=== PATIENT | female | born 1960 | race Caucasian/White ===

== ENCOUNTER → 2020-04-02 17:39 | Outpatient (CLI) | payer OTHER, SELFPAY ==
--- NOTE | 2020-04-02 17:43 | CT_ITS ---
STUDY: CT RIGHT LOWER EXTREMITY REASON FOR EXAM: Valgus deformity of the right knee, surgical planning. TECHNIQUE: Transaxial CT imaging of the knee was performed. Coronal and sagittal images were reformatted. Individualized dose optimization techniques were used for this CT. COMPARISON: None. FINDINGS: Knee: Normal medial femoral condyle and medial tibial plateau. There is mild to moderate joint space narrowing of the of the articular joint space of the medial knee compartment (coronal reconstruction 29). Normal lateral femoral condyle and lateral tibial plateau. There is preservation of the articular joint space of the lateral knee compartment. There is moderate joint space narrowing of the lateral aspect of the patellofemoral articulation (axial image 211). Normal proximal tibiofibular articulation. There is a small joint effusion (sagittal reconstruction 45). The quadriceps tendon is grossly normal. The patellar tendon is grossly normal. There is mild patellar enthesopathy. Normal Hoffa''s fat pad. The soft tissues are unremarkable. Hip: There is mild subchondral cystic change of the superior acetabulum (coronal reconstruction 47). There is mild joint space narrowing of the superior medial right hip (coronal reconstruction 54). Ankle: Normal tibiotalar, posterior subtalar and talonavicular articulations. CT/Extremity Lower without Contra IMPRESSION: Arthrosis of the medial femorotibial and patellofemoral compartments of the right knee. Mild right hip arthrosis. Small right knee joint effusion. Electronically Signed: Vinay Hassan MD at 13:18 EDT Tel , Service support ,
== END ==
PROVIDERS: PCP Family Medicine; Referring Provider Specialist; Visit Provider Specialist
DX: M21.061 Valgus deformity, not elsewhere classified, right knee (principal)
CPT/HCPCS: 73700

== ENCOUNTER → 2020-04-04 15:40 | Outpatient (CLI) | payer OTHER, SELFPAY ==
[2020-04-04 18:18] LABS: Albumin, Serum 4.2 g/dL (3.2-5.0)
== END ==
PROVIDERS: PCP Family Medicine; Referring Provider Specialist; Visit Provider Specialist
DX: Z01.812 Encounter for preprocedural laboratory examination (principal)
CPT/HCPCS: 36415; 82040; 83735; 84443

== ENCOUNTER 2020-04-18 05:20 | Day surgery (SDC) | payer OTHER, SELFPAY ==
[2020-03-28 15:52] LABS: Absolute Lymphocyte Count 1.25 X10^3/uL (0.83-4.51); Absolute Neutrophil Count 2.3 X10^3/uL (2.0-7.7); Basophil# 0.04 X10^3/uL; Eosinophil# 0.19 X10^3/uL; Eosinophils% 4.5 % (0-5); Hematocrit 39.2 % (37-47); Hemoglobin 12.5 g/dL (12.0-15.0); Lymphocyte # 1.25 X10^3/ul (4.0); Lymphocyte % 29.7 % (19-41); Mean Corp Hgb Conc 31.9 g/dL (32-36); Mean Corpuscular Hgb 28.9 pg (27.0-32.0); Mean Corpuscular Volume 90.7 fL (81-99); Mean Platelet Vol. 9.3 fl (6.2-12.0); Monocyte% 9.5 % (0-10); NRBC Flagged by Analyzer 0 % (0-5); Neutrophil # 2.31 X10^3/uL (2.7-7.7); Neutrophil % 54.8 % (47-70); Platelet Count 264 K/mm3 (150-450); RBC Distribution Width CV 12.5 % (11.6-14.6); RBC Distribution Width SD 41.4 fl (35.1-43.9); Red Blood Count 4.32 M/mm3 (4.2-5.4); White Blood Count 4.2 K/mm3 (4.4-11.0)
[2020-03-28 16:01] LABS: Anion Gap 4 (5-15); BUN 26 mg/dL (7-18); BUN/Creat Ratio 33.5 RATIO (10-20); Calcium,Total 9.5 mg/dL (8.5-10.1); Chloride 105 mmol/L (98-107); Creatinine, Serum 0.78 mg/dL (0.55-1.02); EST Glomerular Filtration Rate 80 mL/min (>60); Est Glom Filt Rate - Afr Amer 97 mL/min (>60); Glucose 85 mg/dL (74-106); Potassium 4.7 mmol/L (3.5-5.1); Sodium Level 140 mmol/L (136-145)
--- NOTE | 2020-03-28 23:01 | HP.PCM_ITS ---
History and Physical History and Physical [facility] Patient Name: Jaki Burr : 1960 From: JOSE ANGEL CAMARGO PA-C DATE OF SURGERY: 04/18/2020 SCHEDULED PROCEDURE: right total knee arthroplasty HISTORY OF PRESENT ILLNESS: Preoperative history and physical exam was performed on March 28, 2020. This is a 59-year-old female who has had ongoing pain for the past 5 years. Patient's initial pain began after a fall in 2014. Patient had a repeat fall in November 2019. Her pain has been intermittent, sharp, stabbing, sore. She has increased pain with going up and down stairs, sitting, and walking. She has difficult time from getting up from a seated position. She has difficult time with activities of daily living including housework, shopping, leisure activities such as biking, walking, and hiking. She has fallen secondary to her knee pain. She feels unsafe climbing a ladder. She has attempted rest, ice, elevation, corticosteroid injection with minimal relief. She has been through formal physical therapy and home exercises as well as transitional care nurse with no relief in symptoms. She has attempted meloxicam which is somewhat helpful over the past couple years. Her last injection only gave her 4 months of relief. Patient denies previous surgery on her right knee. She has been using a cane for ambulatory assistance. She has attempted bracing with no relief. After failing conservative measures and discussing treatment options with Dr. Himanshu Ricks, the patient does wish to proceed with a right total knee arthroplasty. We are obtaining surgical clearance from the primary care physician Dr. Domingo. She denies any chest pain, shortness of breath, fevers chills, recent infections. REVIEW OF SYSTEMS: ROS: Const: Reports weight change, but denies change in appetite and fever. CV: Denies chest pain, heart murmur and irregular heartbeat. Resp: Denies cough, pneumonia, shortness of breath, tuberculosis and wheezing. GI: Denies constipation, diarrhea, heartburn, nausea, rectal itching, bloody stools and vomiting. : Denies incontinence. Musculo: Reports trouble walking, but denies leg swelling, pain and weakness. Skin: Denies Raynaud's, history of shingles and tattoo. Neuro: Denies ambulatory dysfunction, dizziness, numbness/tingling and tremor. Psych: Reports anxiety, but denies insomnia and stress. Erick/Lymph: Denies anemia, bleeding/bruising tendency and past transfusion. Reviewed, no changes. PAST MEDICAL HISTORY: Advance Care Plan: Other Directive, LIVING WILL Effective Date: 03/28/2020 Other Directive, POA Effective Date: 03/28/2020 PMH: Medical Problems: Arthritis, Depression, Hypercholesterolemia, Sleep Apnea, Thyroid Disease Accidents: RT Knee - (2014) POPPED Surgical Hx: Hernia Repair - (1966) Hysterectomy - (2001) Tonsillectomy - (2007) Bunion LT - (2005) Carpal Tunnel Release LT - (1995) Tumor Removed From Center Gums - (1960) Sinus Polyps - (1983) LT NOSTRIL Breast Lump Removed - (2003) Uvuloplatopharyngoplasty - (2007) Lipoma Removal - (2019) RT ARMPIT AND BACK Anesthesia Complications: None Assistive Devices: Glasses Reviewed, no changes. SOCIAL HISTORY: SH: Marital: .Occupation: Retired.Work Status: Retired.Hand Dominance: Right- handed. Personal Habits: Cigarette Use: Never Smoked Cigarettes.Smokeless Tobacco: Never Used Smokeless Tobacco.E-Cigarette Use: Never used.Alcohol: Occasionally.Drug Use: Denies Use.Enjoy Exercising: Daily. Reviewed, no changes. VITALS: Ht: 67.5 Wt: 172lb Wt k.019 BMI: 26.5 BP: 110/64 Pulse: 71 Resp: 14 T: 97.2 T: 36.2C ALLERGIES: Sulfa Azithromycin Penicillin Ultram Amoxicillin MEDICATIONS: Oxycodone HCL 5 mg 1-2 tab by mouth every 4 hours, Promethazine HCL 12.5 mg 1-2 tablets by mouth every 6 hours, Famotidine 20 mg 1 by mouth every day, Scopolamine 1 MG/3Days 1 patch behind ear every 3 days; to begin the night before surgery, Synthroid 100 mcg 1 by mouth every day, Meloxicam 15 mg 1 by mouth every day, Sertraline HCL 100 mg 1 by mouth every day, Ipratropium Alta 0.06 % 2 puff inhale orally four times a day, Multivitamin 1po qday, Vitamin E 100 Unit, Replens once q 3days PRE-OP EXAM: General appearance:NORMAL Other: Eyes: Conjunctivae and lids: NORMAL Pupils: ERR Ears, Nose, Mouth, and Throat: NORMAL Other: Inspection of lips, teeth and gums: NORMAL Other: Neck: Examination of neck: no masses noted. Respiratory: Assessment of respiratory effort: NORMAL Other: Auscultation of lungs: clear to auscultation no wheezes, rhonchi or rales. Cardiovascular: Auscultation of heart: regular rate and rhythm, no murmurs, gallops or rubs. Exam of carotid arteries: NORMAL Other: Gastrointestinal: Exam of abdomen: soft, nontender, nondistended bowel sounds present. PHYSICAL EXAMINATION: Patient does walk with a limping gait. Right knee is cool to touch without erythema or signs of infection. She has tenderness to palpation along the medial joint line. Range of motion: 0 extension to 120 flexion. She has crepitus with range of motion. has pain and click with Kimmie's examination. IMAGING STUDIES: X-ray of the right knee reveals valgus alignment and lateral joint space narrowing with subchondral sclerosis and osteophyte formation consistent with severe lateral compartmental osteoarthritis. Stress radiograph was also taken which corrected her valgus alignment. MRI of the right knee does reveal lateral meniscus tearing with grade 4 lateral compartment chondromalacia and appreciable patellofemoral and medial compartment chondromalacia. IMPRESSION: 1. Severe right knee osteoarthritis 2. Depression 3. Hypercholesterolemia 4. Sleep apnea 5. Thyroid disease PLAN: Dr. Himanshu Ricks did discuss and review with the patient all treatment options including surgical versus nonsurgical options. Patient does wish to proceed with the above-stated procedure. Potential risks, benefits, and complications of the procedure were discussed in detail including but not limited to , infection, nerve and blood vessel damage, persistent pain, numbness, tingling, paresthesias, blood clot, pulmonary embolism, and requirement for possible further surgery. The patient expressed full understanding and has no further questions for the doctor. Patient does agree to proceed with the above-stated procedure and has signed the surgery consent form. We discussed the current risks associated with COVID 19. This does include the risk of exposure while in the hospital. Patient was reassured local hospitals have low infection rates and are taking all necessary precautions to avoid exposure to patients. In addition, we discussed strategies that can be used to help limit exposure including those that limit the patient's time in the hospital. Also using strategies to limit the patient's need for continued inpatient services after being discharged from the hospital. Patient was notified that we will need to comply with any screening or testing the hospital wishes to perform or that surgery may be delayed for any positive results. This dictation was created using voice recognition software. Phonetic and/or grammatical errors may exist. ___ I have re-examined the patient. There are no clinical changes since date of exam. ___ See progress notes for changes. ___ Dictated on admission Date: Time: Signature:
[2020-04-04 18:15] LABS: Magnesium 2.2 mg/dL (1.6-2.6); Thyroid Stim Hormone (TSH) 5.36 uIU/mL (0.358-3.74)
[2020-04-18] VITALS (13 sets, daily range): BP systolic 94–122; BP diastolic 52–69; PULSE 58–76; RESP 13–16; TEMP 36.3–36.9; O2SAT 97–100; BMI 26.5
[2020-04-18] MEDS: Lactated Ringers 1,000 ML 999 ML IV ×2 (06:03→09:49)
[2020-04-18] MEDS: Acetaminophen 500 MG Tablet 1000 MG PO ×2 (06:04→14:12)
[2020-04-18] MEDS: Gabapentin 600 MG Tablet PO (06:04)
--- NOTE | 2020-04-18 07:05 | RAD_ITS ---
STUDY: X-RAY - RIGHT KNEE REASON FOR EXAM: Female, 59 years old. POST OP TOTAL KNEE REPLACEMENT TECHNIQUE: 2 view(s) of the knee. COMPARISON: None. FINDINGS: Normal visualized distal femur. Normal visualized proximal tibia and fibula. Normal proximal tibiofibular articulation. The patient is status post total knee replacement. There is good alignment. Postoperative soft tissue changes. RAD/Knee 1 or 2 Views IMPRESSION: Status post total knee replacement. There is good alignment. Postoperative soft tissue changes. Electronically Signed: Dallin Ball, at 11:07 EDT , Service support ,
[2020-04-18] MEDS: Cefazolin 2 GM in 0.9% Normal Saline 100 ML IV (07:22)
[2020-04-18] MEDS: dexAMETHasone 10 MG/ML Vial IV (07:45)
[2020-04-18 08:15] LABS: Bedside Glucose 65 mg/dL (70-110)
--- NOTE | 2020-04-18 08:46 | OP.PCM_ITS ---
Report of Operation Date of Procedure: 04/18/20 Pre-Operative Diagnosis: Right knee primary osteoarthritis Post-Operative Diagnosis: Right knee primary osteoarthritis Surgery/Procedure Performed:: Right knee minimally invasive direct anterior hip replacement Description of Surgical Findings:: Stable knee with good patella tracking fixer boarding room: Andres Rosales Type of Anesthesia:: Spinal Anesthesiologist: Rudy Zamora Special Medications: 2 g Ancef, 1 g TXA at incision, 1 g TXA closure, 10 mg Decadron, joint cocktail (5 mg Duramorph, 30 mL of 0.5% Ropivicaine, 1000 units of epinephrine, 30 mg of Toradol) Specimen's removed: Bony cuts Estimated Blood Loss (mL): 30 Fluids Replaced: Crystalloid Description of Procedure: Implants used: 1. Harshal size 4 triathlon cruciate retaining distal femoral press-fit component 2. [place] size 4 press-fit tritanium tibial baseplate 3. Harshal X3 9 mm CS polyethylene 4. Harshal X3 32 mm asymmetric patella Brief history operative indications: 59-year-old f with history of right knee osteoarthritis with radiographic findings with loss of joint space, osteophyte formation and subchondral sclerosis. Failed conservative measures as mentioned in the H&P. Discussion of total knee arthroplasty as well as risk and benefits were discussed the patient including but not limited to blood loss, DVTs, PEs, neurovascular damage, general risk of anesthesia including loss of life, and stiffness or instability were discussed with patient. Patient demonstrated understanding and was able to sign informed consent. Procedure: On the date of procedure patient's right lower extremity was marked in the preoperative area. The patient was then taken back to the operating room where the patient was placed on the table in the supine position. All bony prominences were identified a well-padded. Anesthesia assumed control of the C-spine and airway and remained controlled throughout the remainder of the procedure. A tourniquet was placed on the right upper thigh and the leg was prepped in a sterile fashion. The surgeon then scrubbed at this time .Upon reentering the room right lower extremity was draped in a standard orthopedic fashion. A timeout was then called and everyone agreed upon the side, the site, the procedure to be performed, patient's identity and antibiotics given. Esmarch bandage was used to exsanguinate the extremity and the tourniquet was placed up to 250 mmHg with the knee in flexion. A midline skin incision was made and sharp dissection was taken down through skin subcutaneous tissue and fat. The standard medial parapatellar incision was made and the patella was subluxed laterally. An Appropriate deep MCL release was done and the fat pad was resected. Our attention was then directed to the patella. The patella was everted and a flat resection was made. The knee was then flexed up in 2 femoral pins were placed inside the incision and 2 tibial pins were placed outside the incision in the medial tibia bicortically. Once this was completed the 2 checkpoints in the femur and tibia were placed. Knee was then flexed up and the bony landmarks were registered. Once this was completed knee was taken through range of motion and manually stressed allowing us to a plan for an appropriate tibial cut. The robotic arm was brought into the field sterilely and checkpoint and saw were registered. Based on the patient's deformity the tibial cut was made 1 degree of varus. At this time the tensioner was then placed in the joint and ligament tension was checked at 90 degrees and full extension. Based on the patient's ligamentous tension appropriate adjustments were made to the operative plan and ligament releases were done. Once we were happy with our operative plan with balanced flexion and extension gaps our attention was directed to the femur. The robot was brought into the field sterilely and registered. Posterior condylar cuts, anterior chamfer cuts and anterior cuts were appropriately made for a size 4 femur. When these were completed the saws were switched out in the distal femoral and posterior chamfer cuts were made. Protecting the soft tissue throughout this time. A size 4 tibial base plate was selected. the knee was flexed to 90 degrees and the soft tissues and posterior osteophytes were removed from the joint. 40 cc of the periarticular injection was injected into the posterior medial corner of the joint. The appropriate trials were then placed on the femur and tibia. A trial polyethylene was trialed to ensure proper balancing and stability of the knee. The appropriate tibial internal rotation was then marked with a bovie. Our attention was then directed to the patella. The lug holes were drilled and the patella trial was placed. Patellar tracking was checked and deemed appropriate. Once we were happy lug holes were drilled for the femur and trial components were removed. the tibia was subluxed and pinned into place and the keel was punched and drilled appropriately. Final components were verified and opened, and cement was mixed in a vacuum. WearYouWant Simplex cement was used. The wound was copiously irrigated with normal saline. When the cement was ready the components were impacted into place starting with the tibia, femur and finally cementing the patella. The trial poly component was placed and the knee was placed in full extension. All excess cement was removed in the process. Once the cement had cured the tracking, alignment and balance were verified and a size 9 mm CS polyethylene component was placed. Once the final components were placed an Irrisept lavage was performed and the wound was copiously irrigated with normal saline solution and the periarticular injection was given. The wound was closed in a layer chapman fashion using #1 vicryl interrupted sutures for the arthrotomy, 2-0 interrupted Vicryl suture for the subcuticular layer and mukul for final skin closure. A sterile compressive dressing was then placed. The patient was then awakened from anesthesia, transferred to the rcanjilon and transferred to the PACU for recovery. Post op plan DVT ppx: ASA 81mg BID, thigh high compression stockings Follow up: in office in 2 weeks for wound check PT: to start POD #0 at hospital, outpatient PT should be arranged. Due to the complexity of this case robotic arm was used to assist in the surgery to improve accuracy and clinical outcomes. - Complications No intraoperative complications - Admit VTE Documentation VTE Present on Admission: No VTE Mechan Device Prophylaxis: SCD's, Thigh High EDUARDO Hose VTE Pharm Prophylaxis ordered?: Yes
[2020-04-18] MEDS: Lactated Ringers 1,000 ML 125 ML IV (10:11)
--- NOTE | 2020-04-18 10:35 | SUR.PHASEI ---
dressing dry and intact. ppp
[2020-04-18] MEDS: oxyCODONE 5 MG Tablet PO (12:40)
[2020-04-18] MEDS: Cefazolin 1 GM/50 ML BAG IV (12:41)
== END 2020-04-18 15:03 | disposition home or self-care (01) ==
LOC: SDC 05:25 → AC 05:25
PROVIDERS: Anesthesiology; PCP Family Medicine; Referring Provider Specialist; Visit Provider Specialist
PROC: 0SRC0JZ Replacement of Right Knee Joint with Synthetic Substitute, Open Approach (ICD-10-PCS; CPT 27447; principal; 2020-04-18 07:00)
DX: M17.11 Unilateral primary osteoarthritis, right knee (principal); Z11.59 Encounter for screening for other viral diseases; E07.9 Disorder of thyroid, unspecified; G47.30 Sleep apnea, unspecified; E78.00 Pure hypercholesterolemia, unspecified; F32.9 Major depressive disorder, single episode, unspecified; Z79.899 Other long term (current) drug therapy; F41.9 Anxiety disorder, unspecified
CPT/HCPCS: 01402; 27447; 64447; S2900; 36415; 73560; 80048; 82962; 83735; 84443; 85025; 87081; 87635; 97162; 97166; C1776; C9803; J7120; J2405; U0003

== ENCOUNTER → 2021-03-11 14:30 | Outpatient (CLI) | payer OTHER, SELFPAY ==
[2020-04-18 05:58] VITALS: BMI 26.5
[2021-03-11 19:45] LABS: Absolute Lymphocyte Count 1.91 X10^3/uL (0.83-4.51); Absolute Neutrophil Count 3.7 X10^3/uL (2.0-7.7); Basophil# 0.06 X10^3/uL; Eosinophil# 0.14 X10^3/uL; Eosinophils% 2.3 % (0-5); Hematocrit 41.5 % (37-47); Hemoglobin 13.1 g/dL (12.0-15.0); Lymphocyte # 1.91 X10^3/ul (0.83-4.51); Lymphocyte % 30.8 % (19-41); Mean Corp Hgb Conc 31.6 g/dL (32-36); Mean Corpuscular Volume 91.8 fL (81-99); Mean Platelet Vol. 9.2 fl (6.2-12.0); Monocyte% 6.5 % (0-10); NRBC Flagged by Analyzer 0 % (0-5); Neutrophil # 3.66 X10^3/uL (2.7-7.7); Neutrophil % 58.9 % (47-70); Platelet Count 338 K/mm3 (150-450); RBC Distribution Width CV 13.5 % (11.6-14.6); RBC Distribution Width SD 46.5 fl (35.1-43.9); Red Blood Count 4.52 M/mm3 (4.2-5.4); White Blood Count 6.2 K/mm3 (4.4-11.0)
[2021-03-11 19:58] LABS: Erythrocyte Sedimentation Rate 6 mm/hr (0-30)
[2021-03-11 20:01] LABS: CRP < 2.90 mg/L (0.0-3.0)
== END ==
PROVIDERS: PCP Family Medicine; Referring Provider Physician Assistant Surgical; Visit Provider Physician Assistant Surgical
DX: Z96.651 Presence of right artificial knee joint (principal)
CPT/HCPCS: 36415; 85025; 85652; 86140

== ENCOUNTER → 2021-06-25 16:09 | Outpatient (CLI) | payer OTHER, SELFPAY ==
[2021-06-25 17:43] LABS: Absolute Lymphocyte Count 0.93 X10^3/uL (0.83-4.51); Absolute Neutrophil Count 7.5 X10^3/uL (2.0-7.7); Basophil# 0.02 X10^3/uL; Basophil% 0.2 % (0-1); Eosinophil# 0.01 X10^3/uL; Eosinophils% 0.1 % (0-5); Hematocrit 40.3 % (37-47); Hemoglobin 13.1 g/dL (12.0-15.0); Lymphocyte # 0.93 X10^3/ul (0.83-4.51); Lymphocyte % 10.5 % (19-41); Mean Corp Hgb Conc 32.5 g/dL (32-36); Mean Corpuscular Hgb 28.5 pg (27.0-32.0); Mean Corpuscular Volume 87.6 fL (81-99); Mean Platelet Vol. 8.7 fl (6.2-12.0); Monocyte# 0.41 X10^3/uL; Monocyte% 4.6 % (0-10); NRBC Flagged by Analyzer 0 % (0-5); Neutrophil # 7.47 X10^3/uL (2.7-7.7); Neutrophil % 84.1 % (47-70); Platelet Count 357 K/mm3 (150-450); RBC Distribution Width CV 12.7 % (11.6-14.6); RBC Distribution Width SD 40.3 fl (35.1-43.9); White Blood Count 8.9 K/mm3 (4.4-11.0)
[2021-06-25 17:58] LABS: Albumin, Serum 4.3 g/dL (3.2-5.0); Anion Gap 6 (5-15); BUN 20 mg/dL (7-18); BUN/Creat Ratio 25.9 RATIO (10-20); Calcium,Total 9.6 mg/dL (8.5-10.1); Chloride 105 mmol/L (98-107); Creatinine, Serum 0.77 mg/dL (0.55-1.02); EST Glomerular Filtration Rate 80 mL/min (>60); Est Glom Filt Rate - Afr Amer 97 mL/min (>60); Glucose 115 mg/dL (74-106); Sodium Level 139 mmol/L (136-145)
== END ==
LOC: LAB.FUTURE 16:09 → MTLAB 16:10
PROVIDERS: Specialist; PCP Family Medicine; Referring Provider Physician Assistant Surgical; Visit Provider Physician Assistant Surgical
DX: Z01.818 Encounter for other preprocedural examination (principal)
CPT/HCPCS: 36415; 80048; 82040; 85025

== ENCOUNTER 2021-10-15 10:55 | Outpatient (CLI) | payer OTHER, SELFPAY ==
[2021-10-15 12:18] LABS: Erythrocyte Sedimentation Rate 11 mm/hr (0-30)
[2021-10-15 12:20] LABS: Absolute Lymphocyte Count 1.45 X10^3/uL (0.83-4.51); Absolute Neutrophil Count 3.2 X10^3/uL (2.0-7.7); Basophil# 0.05 X10^3/uL; Basophil% 0.9 % (0-1); Eosinophil# 0.22 X10^3/uL; Eosinophils% 4.2 % (0-5); Hematocrit 36.9 % (37-47); Lymphocyte # 1.45 X10^3/ul (0.83-4.51); Lymphocyte % 27.5 % (19-41); Mean Corp Hgb Conc 32.5 g/dL (32-36); Mean Corpuscular Hgb 29.3 pg (27.0-32.0); Monocyte# 0.38 X10^3/uL; Monocyte% 7.2 % (0-10); NRBC Flagged by Analyzer 0 % (0-5); Neutrophil # 3.15 X10^3/uL (2.7-7.7); Neutrophil % 59.8 % (47-70); Platelet Count 276 K/mm3 (150-450); RBC Distribution Width CV 13.2 % (11.6-14.6); RBC Distribution Width SD 43.3 fl (35.1-43.9); White Blood Count 5.3 K/mm3 (4.4-11.0)
[2021-10-15 13:03] LABS: CRP < 2.90 mg/L (0.0-3.0)
== END 2021-10-15 23:59 | disposition home or self-care (01) ==
LOC: MTLAB 10:57
PROVIDERS: PCP Family Medicine; Referring Provider Specialist; Visit Provider Specialist
DX: Z96.651 Presence of right artificial knee joint (principal)
CPT/HCPCS: 36415; 85025; 85652; 86140

== ENCOUNTER → 2021-12-12 | Outpatient (CLI) | payer OTHER, SELFPAY ==
[2021-12-12 17:45] LABS: Absolute Lymphocyte Count 1.74 X10^3/uL (0.83-4.51); Absolute Neutrophil Count 3.9 X10^3/uL (2.0-7.7); Basophil# 0.06 X10^3/uL; Basophil% 0.9 % (0-1); Eosinophil# 0.22 X10^3/uL; Eosinophils% 3.5 % (0-5); Hematocrit 39.9 % (37-47); Hemoglobin 12.8 g/dL (12.0-15.0); Lymphocyte # 1.74 X10^3/ul (0.83-4.51); Lymphocyte % 27.5 % (19-41); Mean Corp Hgb Conc 32.1 g/dL (32-36); Mean Corpuscular Hgb 28.6 pg (27.0-32.0); Mean Corpuscular Volume 89.1 fL (81-99); Mean Platelet Vol. 8.9 fl (6.2-12.0); Monocyte% 6.3 % (0-10); NRBC Flagged by Analyzer 0 % (0-5); Neutrophil # 3.87 X10^3/uL (2.7-7.7); Neutrophil % 61.3 % (47-70); Platelet Count 318 K/mm3 (150-450); RBC Distribution Width CV 13.2 % (11.6-14.6); RBC Distribution Width SD 42.9 fl (35.1-43.9); Red Blood Count 4.48 M/mm3 (4.2-5.4); White Blood Count 6.3 K/mm3 (4.4-11.0)
[2021-12-12 18:09] LABS: Anion Gap 6 (5-15); BUN 22 mg/dL (7-18); BUN/Creat Ratio 24.3 RATIO (10-20); Calcium,Total 9.3 mg/dL (8.5-10.1); Chloride 104 mmol/L (98-107); EST Glomerular Filtration Rate 67 mL/min (>60); Est Glom Filt Rate - Afr Amer 81 mL/min (>60); Glucose 89 mg/dL (74-106); Potassium 4.4 mmol/L (3.5-5.1); Sodium Level 138 mmol/L (136-145)
== END | disposition home or self-care (01) ==
PROVIDERS: PCP Family Medicine; Referring Provider Physician Assistant Surgical; Visit Provider Physician Assistant Surgical
DX: Z01.818 Encounter for other preprocedural examination (principal)
CPT/HCPCS: 36415; 80048; 82040; 85025

== ENCOUNTER → 2022-01-31 | Outpatient (CLI) | payer OTHER, SELFPAY ==
[2022-01-31 12:35] LABS: Hematocrit 35.1 % (37-47); Hemoglobin 11.5 g/dL (12.0-15.0); Mean Corp Hgb Conc 32.8 g/dL (32-36); Mean Corpuscular Hgb 29.3 pg (27.0-32.0); Mean Corpuscular Volume 89.3 fL (81-99); Mean Platelet Vol. 8.7 fl (6.2-12.0); Platelet Count 329 K/mm3 (150-450); RBC Distribution Width CV 13.4 % (11.6-14.6); RBC Distribution Width SD 43.9 fl (35.1-43.9); Red Blood Count 3.93 M/mm3 (4.2-5.4); White Blood Count 5.1 K/mm3 (4.4-11.0)
== END | disposition home or self-care (01) ==
LOC: MTLAB 10:56
PROVIDERS: PCP Family Medicine; Referring Provider Family Medicine; Visit Provider Family Medicine
DX: D50.0 Iron deficiency anemia secondary to blood loss (chronic) (principal)
CPT/HCPCS: 36415; 85027

== ENCOUNTER → 2023-02-18 | Outpatient (CLI) | payer OTHER, SELFPAY ==
[2023-02-18 10:52] LABS: Bacteria 0 SEEN /hpf (None Seen); Mucous, Urine 0 SEEN /hpf (<or=2+); Red Blood Cells-Urine 0 SEEN /hpf (0-5); White Blood Cells 0 SEEN /hpf (0-5)
[2023-02-18 12:40] LABS: Absolute Lymphocyte Count 1.18 X10^3/uL (0.83-4.51); Absolute Neutrophil Count 2.9 X10^3/uL (2.0-7.7); Basophil# 0.04 X10^3/uL; Basophil% 0.9 % (0-1); Eosinophil# 0.15 X10^3/uL; Eosinophils% 3.2 % (0-5); Hematocrit 40.3 % (37-47); Hemoglobin 12.6 g/dL (12.0-15.0); Lymphocyte # 1.18 X10^3/ul (0.83-4.51); Lymphocyte % 25.3 % (19-41); Mean Corp Hgb Conc 31.3 g/dL (32-36); Mean Corpuscular Hgb 29.2 pg (27.0-32.0); Mean Corpuscular Volume 93.3 fL (81-99); Mean Platelet Vol. 8.7 fl (6.2-12.0); Monocyte# 0.32 X10^3/uL; Monocyte% 6.9 % (0-10); NRBC Flagged by Analyzer 0 % (0-5); Neutrophil # 2.94 X10^3/uL (2.7-7.7); Neutrophil % 63.1 % (47-70); Platelet Count 320 K/mm3 (150-450); RBC Distribution Width CV 13.9 % (11.6-14.6); RBC Distribution Width SD 47.6 fl (35.1-43.9); Red Blood Count 4.32 M/mm3 (4.2-5.4); White Blood Count 4.7 K/mm3 (4.4-11.0)
[2023-02-18 12:41] LABS: Color, Urine Yellow (Yellow); Erythrocyte Sedimentation Rate 6 mm/hr (0-30); Glucose, Dipstick Normal (Normal); Ketone-Dipstick Negative (Negative); Leukocyte Esterase-Dipstick Negative /ul (Negative); Nitrite-Dipstick Negative (Negative); Occult Blood-Urine Negative /ul (Negative); Protein-Dipstick Negative (Negative); Urine Bilirubin Dipstick Negative (Negative); Urine Clarity Clear (Clear); Urine Urobilinogen Normal (Normal)
[2023-02-18 12:48] LABS: Squamous Epithelial Cells - UA 0-5 SEEN /hpf (5-10)
[2023-02-18 13:12] LABS: ALB/GLOB Ratio 1.2 RATIO (0.9-2.4); AST(SGOT) 22 U/L (15-37); Alanine Aminotransfer ALT/SGPT 38 U/L (13-56); Albumin, Serum 4.1 g/dL (3.2-5.0); Alkaline Phosphatase 53 U/L (45-117); Anion Gap 4 (5-15); BUN 15 mg/dL (7-18); CPK Total, Creatine Kinase 106 U/L (26-192); CRP < 2.90 mg/L (0.0-3.0); Calcium,Total 9.6 mg/dL (8.5-10.1); Chloride 103 mmol/L (98-107); Creatinine, Serum 0.83 mg/dL (0.55-1.02); EST Glomerular Filtration Rate 73 mL/min (>60); Est Glom Filt Rate - Afr Amer 89 mL/min (>60); Globulin 3.5 g/dL (2.2-4.2); Glucose 98 mg/dL (74-106); Potassium 4.8 mmol/L (3.5-5.1); Protein, Total 7.6 g/dL (6.4-8.2); Sodium Level 138 mmol/L (136-145)
[2023-02-19 05:07] LABS: Complement C3 126 mg/dL (82-167)
== END | disposition home or self-care (01) ==
LOC: MTLAB 10:21
PROVIDERS: PCP Family Medicine; Referring Provider Internal Medicine Rheumatology; Visit Provider Internal Medicine Rheumatology
DX: M05.79 Rheumatoid arthritis with rheumatoid factor of multiple sites without organ or systems involvement (principal); M32.9 Systemic lupus erythematosus, unspecified; D17.1 Benign lipomatous neoplasm of skin and subcutaneous tissue of trunk; R76.8 Other specified abnormal immunological findings in serum; E55.9 Vitamin D deficiency, unspecified; E05.80 Other thyrotoxicosis without thyrotoxic crisis or storm; E03.8 Other specified hypothyroidism; G56.03 Carpal tunnel syndrome, bilateral upper limbs; H93.13 Tinnitus, bilateral; Z87.39 Personal history of other diseases of the musculoskeletal system and connective tissue; Z92.89 Personal history of other medical treatment; Z96.651 Presence of right artificial knee joint
CPT/HCPCS: 36415; 80053; 81001; 82550; 85025; 85652; 86140; 86160; 86431

== ENCOUNTER 2023-03-13 05:52 | Day surgery (SDC) | payer OTHER, SELFPAY ==
[2023-03-13] MEDS: Lactated Ringers 1,000 ML 15 ML IV (06:25)
[2023-03-13 06:26] VITALS: BP 113/70; PULSE 70; RESP 17; TEMP 36.7; O2SAT 97; BMI 27.9
--- NOTE | 2023-03-13 07:14 | PCM.HP.BLA ---
History and Physical Date of Admission: 03/13/23 Pt examined and there is no interval change from H&P of 02/20/23. Pt with sq mass mid back--for exicision. Assessment & Plan Assessment/Plan (1) Neoplasm of uncertain behavior of connective and other soft tissue: PLAN: Plan Pt for excision mass back
[2023-03-13] MEDS: Cefazolin 2 GM in 0.9% Normal Saline 100 ML IV (07:29)
--- NOTE | 2023-03-13 07:30 | SOF_PTH ---
PATIENT: VARINDER ALFARO [place]: [facility] [place] U[place][id number] AGE/SX: 62/F ROOM: RE03/13/[address]: Dr. Kitty Burnham MD : 1960 BED: DIS: 03/13/2023 SPEC #: [id number] RECD: 03/13/23 09:24 STATUS: ELOINA PATHAK #: [id number] KARSTEN: 03/13/23 07:[address]: Kitty Burnham DEPT: SURGICAL PATHOLOGY RECD BY: Sigrid Friedman ENTERED: 03/13/23 10:18 SP TYPE: SOFT TISS OTHR DR: Dr. Simeon Esparza MD Tissues: Soft tissues, NOS Procedures: Surgery Specimen Level III HEADER OPERATION: Excision SQ mass back PRE-OP DIAGNOSIS: Neoplasm of soft tissue on back TISSUE SUBMITTED: Back mass MICROSCOPIC DIAGNOSIS Soft tissue mass of back, excision: Mature adipose tissue consistent with lipoma. AM:pancho 03/16/2023 MICROSCOPIC DESCRIPTION Slides are reviewed. GROSS DESCRIPTION Received in fixative is one container labeled with the patient's name and designated back mass. The specimen consists of multiple irregular fragments of hinson-yellow fibrofatty tissue that in aggregate measure 4.0 x 3.5 x 0.6 cm. The specimen is totally submitted in two cassettes. / AM:pancho 03/13/2023 TC:1 CPT: 41840
[2023-03-13] MEDS: Lidocaine 1% /Epi 1:100 (20ml) 20 ML Vial (08:05)
--- NOTE | 2023-03-13 08:54 | DCINST_ITS ---
Discharge Instructions Diet Discharge Diet: No restrictions Dressing / Incision Remove Dressing in: leave in place till F/U Additional Dressing/Incision Instructions:: Keep your back elevated (recliner position) for the next 4-5 nights to decrease pressure on the area and to reduce bruising/swelling. Take the oral antibiotic (Keflex) 2 x a day until finished. May shower over the area, but do not scrub. F/U in 1-2 weeks for recheck. Follow Up Care Please Follow Up With: Kitty Burnham MD When: 1-2 weeks Test Results: Test results from this visit will be discussed in further detail at your follow- up appointment, if applicable. Discharge Plan Admission Attending Provider: Kitty Burnham Primary Care Provider: Simeon Esparza Discharge Orders/Prescriptions Prescriptions: New cephalexin 500 mg capsule 500 mg PO BID Qty: 10 0RF No Action hydroxychloroquine [Plaquenil] 200 mg tablet 100 mg PO DAILY duloxetine [Cymbalta] 20 mg capsule,delayed release(DR/EC) 120 mg PO DAILY cholecalciferol (vitamin D3) 25 mcg (1,000 unit) capsule 25 mcg PO DAILY trazodone 50 mg tablet 50 mg PO QHS PRN (Reason: insomnia) acetaminophen [Tylenol Extra Strength] 500 mg tablet 500 mg PO Q6H PRN (Reason: pain) levothyroxine 100 MCG tablet 112 mcg PO DAILY estradiol 0.01 % (0.1 mg/gram) cream 1 g VAGINAL .QOD Patient Comments: INSERT 1/4 APPLICATOR Every other day fluticasone propionate [Flonase Allergy Relief] 50 mcg/actuation spray,suspen elizabet 2 spray intranasal DAILY Rx Instructions: administer into each nostril Referrals / Follow Up: Simeon Esparza MD [Primary Care Provider] - Disposition Disposition (needs filled in before D/C Order can be placed): Home, Self Care
[2023-03-13 09:00] VITALS: BP 113/70; BP 137/68; PULSE 83; RESP 16; TEMP 36.9; O2SAT 95
--- NOTE | 2023-03-13 09:02 | PCM.OPRPT ---
Report of Operation Date of Procedure: 03/13/23 Pre-Operative Diagnosis: Subcutaneous mass mid back Post-Operative Diagnosis: Same Surgery/Procedure Performed:: Excision subcutaneous mass mid back (4.5 cm) Surgeon: Kitty Burnham Type of Anesthesia: General Specimen's removed: Subcutaneous mass Drains: None Estimated Blood Loss (mL): Minimal Description of Procedure: The patient was brought to the operating room and placed under general anesthesia in the supine position. The patient is then repositioned to a right lateral decubitus position using beanbags and padding. Additionally her arm is supported and suspended to maintain anatomic position. The back is prepped and draped in the usual sterile fashion. I initially began with injecting 1% Xylocaine with epinephrine to facilitate hemostasis. Following this, an incision is made over top of the mass and carried down through the subcutaneous tissue. The subcutaneous mass is noted to be a multilobulated fatty tissue. As much of the lobulations as possible are removed. The wound is irrigated with saline and checked for hemostasis which is controlled with cautery. The specimen is passed off the operative field to be sent to pathology. The wound is closed in layers by initially approximating subcutaneous fat with Vicryl suture. Following this, a V-Loc suture was used to approximate the subcutaneous tissue and dermis and skin in multiple layers. Quarter percent plain Marcaine is injected along the incision line at the conclusion. Dermabond was placed on the incision along with Steri-Strips and a Tegaderm. She tolerated the procedure well and was taken to the recovery area in an awake and stable condition. Needle and sponge counts are correct. Complications None Admit VTE Documentation VTE Mechan Device Prophylaxis: SCD's
[2023-03-13] MEDS: Acetaminophen 500 MG Tablet 1000 MG PO (09:10)
[2023-03-13 09:15] VITALS: BP 110/60; BP 113/70; PULSE 77; RESP 16; TEMP 36.9; O2SAT 99
[2023-03-13 09:45] VITALS: BP 113/70
== END 2023-03-13 10:03 | disposition home or self-care (01) ==
LOC: SDC 05:53 → AC 05:54
PROVIDERS: PCP Family Medicine; Referring Provider Plastic Surgery; Visit Provider Plastic Surgery
PROC: (CPT 21931; principal; 2023-03-13 07:20)
DX: D17.39 Benign lipomatous neoplasm of skin and subcutaneous tissue of other sites (principal); M32.9 Systemic lupus erythematosus, unspecified; E07.9 Disorder of thyroid, unspecified; M19.90 Unspecified osteoarthritis, unspecified site; Z79.899 Other long term (current) drug therapy
CPT/HCPCS: 21931; 00300; 88304; 88305; J7120; J2405

== ENCOUNTER → 2023-04-07 | Outpatient (CLI) | payer OTHER, SELFPAY ==
[2023-04-07 12:48] LABS: Thyroid Stim Hormone (TSH) 1.98 uIU/mL (0.358-3.74)
== END | disposition home or self-care (01) ==
LOC: MTLAB 10:41
PROVIDERS: PCP Family Medicine; Referring Provider Family Medicine; Visit Provider Family Medicine
DX: E03.9 Hypothyroidism, unspecified (principal)
CPT/HCPCS: 36415; 84443

== ENCOUNTER → 2023-07-15 | Outpatient (CLI) | payer OTHER, SELFPAY ==
--- NOTE | 2023-07-15 13:27 | MRI_ITS ---
STUDY: MRI RIGHT SHOULDER, WITHOUT AND WITH IV CONTRAST REASON FOR EXAM: Female, 62 years old. M79.62, D17.9 Right axilla, rule out mass. TECHNIQUE: Standardized fat and water weighted pulse sequences were obtained in all 3 orthogonal planes. Following the intravenous administration of 17 cc Clariscan contrast, additional postcontrast imaging was obtained. COMPARISON: None. FINDINGS: Skin markers were placed along the right axillary region at the site of clinical concern. There is mild prominence of the subcutaneous fat in the right axillary region, but there is no discrete soft tissue mass or fluid collection. There is supraspinatus tendinosis with a 2 x 4 mm high-grade partial thickness articular surface tear of the anterior distal supraspinatus tendon insertion (coronal T2 series 6 image 32; sagittal T2 series 7 image 18). Normal infraspinatus tendon. There is subscapularis tendinosis. Normal teres minor tendon. Normal supraspinatus muscle. Normal infraspinatus muscle. Normal subscapularis muscle. Normal teres minor muscle. There is a small glenohumeral joint effusion. There is tiny enthesopathic subcortical cyst formation of the greater tuberosity of the humerus. Normal biceps labral complex. Normal intracapsular long biceps tendon. Normal labrum. Normal capsulo-ligamentous complex. Normal rotator interval. There is no subacromial-subdeltoid bursal fluid. Normal visualized coracohumeral and coracoacromial ligaments. Normal quadrilateral space. Normal deltoid muscle. Normal trapezius muscle. There is no abnormal enhancing lesion. MRI/Upper Ext Joint Only W/WO Cont IMPRESSION: Mild prominence of the subcutaneous fat in the right axillary region, but no discrete soft tissue mass or fluid collection. An unencapsulated subcutaneous lipoma cannot be excluded. No abnormal enhancing lesion. Supraspinatus tendinosis with a 2 x 4 mm high-grade partial thickness articular surface tear of the anterior distal supraspinatus tendon insertion. Small glenohumeral joint effusion. Electronically Signed: Simeon Jean-Baptiste MD at 16:09 EST ,
[2023-07-15 14:09] LABS: CREATININE FINGERSTICK < 1.0 mg/dL (0.55-1.02); EGFR FINGERSTICK > 60.0000 mL/min (>60)
== END | disposition home or self-care (01) ==
LOC: MRI 13:14
PROVIDERS: PCP Family Medicine; Referring Provider Plastic Surgery; Visit Provider Plastic Surgery
DX: M79.621 Pain in right upper arm (principal); D17.9 Benign lipomatous neoplasm, unspecified
CPT/HCPCS: 73223; A9575